=== PATIENT | female | born 1990 ===

== ENCOUNTER 2018-09-14 19:57 | Emergency (ER) | payer OTHER, MEDICAID ==
[2018-09-14 20:09] VITALS: BMI 27.4
[2018-09-14 20:17] VITALS: TEMP 98.2
--- NOTE | 2018-09-14 20:42 | ED PDOC ---
Arrival/HPI <JoseDwight - Last Filed: 09/14/18 21:58> - General Historian: Patient - History of Present Illness Narrative History of Present Illness (Text): 28 y/o with no significant PMH presents to the ED c/o lateral right ankle and foot pain s/p injury earlier this evening. Pt tripped down two stairs and rolled her right ankle. Denies head strike or LOC. Took 2 extra strength tylenol for pain [employer] with mild relief. Pt is able to bear minimal weight although with pain. Denies numbness, weakness, paresthesias, open wounds, or pain elsewhere. <Adelina Galvan - Last Filed: 09/15/18 20:05> - General Chief Complaint: Trauma Time Seen by Provider: 09/14/18 19:59 Past Medical History - Provider Review Nursing Documentation Reviewed: Yes - Infectious Disease Hx of Infectious Diseases: None - Tetanus Immunization Tetanus Immunization: Unknown - Cardiac Hx Cardiac Disorders: No Hx Hypertension: No - Psychiatric Hx Depression: No Hx Substance Use: No - Surgical History Hx Musculoskeletal Surgery: Yes - Anesthesia Hx Anesthesia: No Hx Anesthesia Reactions: No Hx Malignant Hyperthermia: No <Adelina Galvan - Last Filed: 09/15/18 20:05> Family/Social History - Physician Review Nursing Documentation Reviewed: Yes Family/Social History: No Known Family HX Smoking Status: Never Smoked Hx Alcohol Use: No Hx Substance Use: No <Adelina Galvan - Last Filed: 09/15/18 20:05> Allergies/Home Meds <JoseDwight - Last Filed: 09/14/18 21:58> <Adelina Galvan - Last Filed: 09/15/18 20:05> Allergies/Adverse Reactions: Allergies aspirin Allergy (Verified 09/14/18 20:12) SWELLING diphenhydramine [From Benadryl] Allergy (Verified 03/28/18 02:11) SWELLING Black Hair Dye Allergy (Uncoded 09/14/18 20:12) ANAPHYLAXIS Home Medications: Home Meds Medication Instructions Recorded Confirmed No Known Home Med 09/14/18 09/14/18 Review of Systems - Review of Systems Constitutional: Normal. absent: Fevers Eyes: Normal. absent: Vision Changes ENT: Normal. absent: Sore Throat, Sinus Congestion Respiratory: Normal. absent: SOB, Cough Cardiovascular: Normal. absent: Chest Pain, Palpitations, Syncope Gastrointestinal: Normal. absent: Abdominal Pain, Nausea, Vomiting Genitourinary Female: Normal Musculoskeletal: Other (right ankle and foot pain). absent: Back Pain Skin: Normal. absent: Rash, Laceration, Cellulitis Neurological: Normal <Adelina Galvan - Last Filed: 09/15/18 20:05> Physical Exam Vital Signs Temp Pulse Resp BP Pulse Ox 09/14/18 20:16 98.2 F 81 18 124/76 98 <Dwight Garcia - Last Filed: 09/14/18 21:58> Vital Signs Reviewed: Yes Vital Signs Temp Pulse Resp BP Pulse Ox 09/14/18 20:16 98.2 F 81 18 124/76 98 Temperature: Afebrile Blood Pressure: Normal Pulse: Regular Respiratory Rate: Normal Appearance: Positive for: Well-Appearing, Non-Toxic, Comfortable Pain Distress: None Mental Status: Positive for: Alert and Oriented X 3 - Systems Exam Head: Present: Atraumatic, Normocephalic Pupils: Present: PERRL Extroacular Muscles: Present: EOMI Conjunctiva: Present: Normal Mouth: Present: Moist Mucous Membranes Neck: Present: Normal Range of Motion. No: Meningeal Signs Respiratory/Chest: Present: Clear to Auscultation, Good Air Exchange. No: Respiratory Distress, Accessory Muscle Use Cardiovascular: Present: Regular Rate and Rhythm, Normal S1, S2, Peripheal Pulses Present Upper Extremity: Present: Normal Inspection, Normal ROM, NORMAL PULSES, Neurovascularly Intact, Capillary Refill < 2s. No: Cyanosis, Edema, Temperature Abnormalties Lower Extremity: Present: Normal Inspection, NORMAL PULSES, Tenderness (mild tenderness to right lateral malleolus and over lateral dorsal right foot ), Swelling (over right lateral malleolus), Neurovascularly Intact, Capillary Refill < 2 s. No: Edema, CALF TENDERNESS, Normal ROM (decreased at right ankle), Temperature Abnormalties Neurological: Present: GCS=15, CN II-XII Intact, Speech Normal, Motor Func Grossly Intact, Normal Sensory Function, Gait Normal Skin: Present: Warm, Dry, Normal Color. No: Rashes Psychiatric: Present: Alert, Oriented x 3, Normal Insight, Normal Concentration, Normal Affect, Normal Mood <Adelina Galvan - Last Filed: 09/15/18 20:05> Medical Decision Making - RAD Interpretation Radiology Orders: 09/14/18 20:32 ANKLE RIGHT 3 VIEWS ROUTINE [RAD] Stat FOOT RIGHT 3 VIEWS ROUTINE [RAD] Stat <Dwight Garcia - Last Filed: 09/14/18 21:58> ED Course and Treatment: 09/14/18 20:39 Initial Plan: * Right Foot XR * Right Ankle XR Xrays show no fracture as read by me. Pt placed in right posterior short leg splint by me. Neurovascular exam unchanged after splinting. Pt tolerated well. Crutch training provided by driver service technician. Pt able to demonstrate appropriate and safe crutch use prior to discharge. Diagnostic testing results and plan of care discussed with patient. Strict instructions given regarding prescription use, importance of followup, and signs/symptoms to return to ER including worsening pain, numbness, weakness, paresthesias, or any other new/worsening symptoms. Pt verbalized understanding of discussion. Patient is A&Ox3, ambluating with steady gait, with vital signs stable for discharge. - RAD Interpretation Radiology Orders: 09/14/18 20:32 ANKLE RIGHT 3 VIEWS ROUTINE [RAD] Stat FOOT RIGHT 3 VIEWS ROUTINE [RAD] Stat <Adelina Galvan - Last Filed: 09/15/18 20:05> Procedures - Splinting Location: right leg Hand-Made Type: orthoglass Splint: right posterior short leg Pre-Proc Neuro Vasc Exam: normal Post-Proc Neuro Vasc Exam: normal <Adelina Galvan - Last Filed: 09/15/18 20:05> - PA / COMPUTER FORENSIC EXAMINER / Resident Statement / has reviewed & agrees with the documentation as recorded. <Dwight Garcia - Last Filed: 09/14/18 21:58> Disposition/Present on Arrival <Dwight Garcia - Last Filed: 09/14/18 21:58> - Present on Arrival Any Indicators Present on Arrival: No History of DVT/PE: No History of Uncontrolled Diabetes: No Urinary Catheter: No History of Decub. Ulcer: No History Surgical Site Infection Following: None - Disposition Have Diagnosis and Disposition been Completed?: Yes Disposition Time: 21:30 Patient Plan: Discharge <Adelina Galvan - Last Filed: 09/15/18 20:05> - Disposition Diagnosis: Ankle sprain Disposition: HOME/ ROUTINE Condition: IMPROVED Discharge Instructions (ExitCare): Ankle Sprain (DC) Additional Instructions: Keep splint on and dry until followup Use crutches for moving around Tylenol as needed for pain Followup with podiatry within 2 days Followup with primary within 2 days Return to ER with any new/worsening symptoms Referrals: [facility] at [facility] [Outside] - Follow up with primary Podiatry Clinic [Outside] - Follow up with primary Dianne Collins MD [Medical Doctor] - Follow up with primary Forms: [employer] (Citizen [place]), WORK NOTE
[2018-09-14 22:32] VITALS: BP 121/69; PULSE 79; RESP 16; O2SAT 99
--- NOTE | 2018-09-15 08:40 | RAD ---
PROCEDURE: Right ankle radiographs, three views. Right foot radiographs, three views. HISTORY: trauma today, lateral pain COMPARISON: None available. FINDINGS: BONES: No acute displaced fracture. JOINTS: No dislocation. SOFT TISSUES: Marked soft tissue swelling most prominent laterally. No evidence of radiopaque foreign body. OTHER FINDINGS: None. IMPRESSION: Marked soft tissue swelling, most prominent laterally. No acute displaced fracture or dislocation identified. If symptoms persist or if there is clinical concern, x-ray follow-up in 7-10 days should be considered.
== END 2018-09-14 22:11 | disposition home or self-care (01) ==
LOC: ED 19:57
DX: S93.401A Sprain of unspecified ligament of right ankle, initial encounter (principal); W10.9XXA Fall (on) (from) unspecified stairs and steps, initial encounter